=== PATIENT | male | born 1975 | race Caucasian/White ===

== ENCOUNTER 2020-12-16 13:30 | Emergency (ER) | payer OTHER ==
[~2020-12-16] VITALS: Ht 180.3 cm; Wt 94.8 kg
[2020-12-16 13:40] VITALS: BP_SYST 118
--- NOTE | 2020-12-16 13:40 | NUR ---
Placed in room 7 . Placed on chief psychology, blood pressure machine and pulse oximeter. To gown for exam. Side rails up.
--- NOTE | 2020-12-16 13:41 | NUR ---
Pt bib BLS for left sided sharp non radiating chest pain 10/28 X2days. Pt is AAOX4 speaking full sentences. Breathing is even and unlabored. Pt reports yesterday at work he felt a sudden pain in his chest and went home took tums antacid and it did not go away. Pt reports pain with inspiration. Pt attached to monitor resting in [facility] VSS no distress noted.
--- NOTE | 2020-12-16 14:10 | NUR ---
ER at bedside examining patient.
--- NOTE | 2020-12-16 14:16 | NUR ---
X-ray at bedside.
--- NOTE | 2020-12-16 14:20 | NUR ---
# 18 gauge angiocath placed to LAC. Use of asceptic technique. Opsite placed over site. Blood return noted. Blood for lab drawn from site. Flushed with 10 cc of normal saline. No evidence of infiltration noted. Patient tolerated well.
--- NOTE | 2020-12-16 14:21 | NUR ---
Blood collected and sent to lab.
--- NOTE | 2020-12-16 14:47 | NUR ---
CT consent signed
--- NOTE | 2020-12-16 14:50 | NUR ---
Urine collected and sent to lab.
[2020-12-16 14:54] LABS: HEMATOCRIT 37.8 % (36-54); MEAN CORPUSCULAR HEMOGLOBIN 31 pg (27-31); MEAN CORPUSCULAR HGB CONC 34 % (32-36); MEAN CORPUSCULAR VOLUME 89 fL (79.0-98.0); PLATELET COUNT (AUTO) 317 K/uL (130-430); RED BLOOD CELL COUNT(AUTO) 4.24 MIL/uL (4.2-6.2); RED CELL DISTRIBUTION WIDTH 13.2 % (9.0-15.0); WHITE BLOOD COUNT (AUTO) 16.9 K/uL (4.8-10.8)
[2020-12-16 15:10] LABS: CALCIUM 10.1 mg/dL (8.4-11.0); CREATININE 0.9 mg/dL (0.55-1.30)
[2020-12-16 15:12] LABS: ALBUMIN 3.3 g/dL (3.4-4.8); TOTAL BILIRUBIN 0.4 mg/dL (0.0-1.0)
[2020-12-16] MEDS ORDERED: IOHEXOL 350 mgI/mL, 150 ML INFUS..BTL IV ONE (15:18)
[2020-12-16 15:24] LABS: ATYPICAL LYMPHOCYTES % 0 % (0-0); BAND % (MANUAL) 2 % (0-6); LYMPHOCYTES % (MANUAL) 8 % (20-46)
--- NOTE | 2020-12-16 15:24 | NUR ---
Patient transported to radiology via wheelchair, accompanied by tech.
[2020-12-16 15:25] LABS: BASOPHILS % (MANUAL) 0 % (0-2); EOSINOPHILS % (MANUAL) 2 % (0-7); MONOCYTES % (MANUAL) 10 % (0-11)
--- NOTE | 2020-12-16 15:32 | NUR ---
Back from CT.
[2020-12-16] MEDS ORDERED: NACL 0.9% 1,000 ML IV ONE (16:00)
[2020-12-16] MEDS ORDERED: KETOROLAC TROMETHAMINE 15 MG VIAL IVP ONE (16:45)
[2020-12-16] MEDS ORDERED: AMOXICILLIN/CLAVULANATE POTASSIUM 875 MG TABLET PO ONE (17:00)
[2020-12-16] MEDS ORDERED: AZITHROMYCIN 250 MG TABLET PO ONE (17:00)
[2020-12-16] MEDS ORDERED: ZIT250 PO (17:34)
[2020-12-16] MEDS ORDERED: AMOX-426 PO (17:34)
[2020-12-16 17:41] VITALS: BP_SYST 120
--- NOTE | 2020-12-16 17:41 | NUR ---
Patient given written and verbal discharge instructions and verbalizes understanding. ER MD discussed with patient the results and treatment provided. Patient in stable condition. ID arm band removed. IV catheter removed intact and dressing applied, no active bleeding. Rx of amoxicillin and azithromycin given. Patient educated on pain management and to follow up with PMD. Pain Scale 2/10. Opportunity for questions provided and answered. Medication side effect fact sheet provided.
== END 2020-12-16 17:41 | disposition home or self-care (01) ==
LOC: SED 13:30
DX: J18.9 Pneumonia, unspecified organism (principal)
CPT/HCPCS: 36415; 71045; 71275; 76376; 80053; 84484; 85007; 85027; 93005; 96361; 96374; 99285; J1885; J7030; Q0144; Q9967